=== PATIENT | female | born 1950 | race Caucasian/White ===

== ENCOUNTER → 2017-01-24 | Outpatient (REF) | payer MEDICARE, OTHER ==
[~2017-01-24] MED LIST: ACET65TA OR; AMLO5TAB OR; ASPI325T OR; ATEN50TA2 OR; AVAP300T OR; HYDR25TA6 OR; INTERFERON SQ; OMEP20TA7 OR; RIBAPOW11 PO
[2017-01-27 13:43] LABS: ALBUMIN 4.23 GM/DL (3.29-5.55); ALBUMIN % 52.9 % (55.8-66.1); GAMMA GLOBULIN % 20.3 % (11.1-18.8)
[2017-01-27 13:53] LABS: PHOSPHORUS LEVEL 3.7 MG/DL (2.5-4.9)
== END ==
LOC: M LAB REF 16:17
PROVIDERS: ATTEND Nurse Practitioner Adult Health
DX: R77.9 Abnormality of plasma protein, unspecified (principal); Z79.899 Other long term (current) drug therapy

== ENCOUNTER → 2017-02-07 | Outpatient (CLI) | payer MEDICARE, BC, OTHER | LOC: M LAB 12:52 | PROVIDERS: ATTEND Nurse Practitioner Adult Health | DX: E83.52 Hypercalcemia (principal) ==

== ENCOUNTER → 2017-02-12 | Outpatient (REF) | payer MEDICARE, BC, OTHER | LOC: M LAB REF 13:21 | PROVIDERS: ATTEND Nurse Practitioner Adult Health | DX: E83.52 Hypercalcemia (principal) ==

== ENCOUNTER → 2017-02-14 | Outpatient (REF) | payer MEDICARE, BC, OTHER ==
[2017-02-14 14:12] LABS: CALCIUM, URINE 13.5 MG/DL
== END ==
LOC: M LAB REF 12:38
PROVIDERS: ATTEND Nurse Practitioner Adult Health
DX: E83.52 Hypercalcemia (principal)

== ENCOUNTER → 2017-02-21 | Outpatient (CLI) | payer MEDICARE, BC, OTHER ==
--- NOTE | 2017-02-21 12:49 | REP ---
Whole body radionuclide bone scan: History: Hypercalcemia. Technique: 22.0 mCi technetium 99m MDP is injected and standard whole body bone scan imaging was acquired. 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 Mild degenerative disc and facet uptake is seen in the lumbar spine and the mid thoracic spine. There is some slightly increased arthritic uptake in the manubrial clavicular joint on the right compared to the left. There is no evidence to suggest skeletal metastatic disease. Bilateral renal and bladder uptake are observed. Impression: Arthritic pattern of increased uptake. No evidence to suggest skeletal metastatic disease. Signed by Damien Baltazar MD 02/21/2017 01:22 P
== END ==
LOC: M RAD 08:57
PROVIDERS: ATTEND Nurse Practitioner Adult Health
DX: E83.52 Hypercalcemia (principal)
CPT/HCPCS: 78306; A9503

== ENCOUNTER → 2018-01-30 | Outpatient (REF) | payer MEDICARE, BC, OTHER ==
[2018-01-30 17:27] LABS: C REACTIVE PROTEIN QUANTITATIV < 0.30 MG/DL (0.00-0.30)
[2018-01-30 17:35] LABS: VITAMIN B12 LEVEL 409 PG/ML (247-911)
== END ==
LOC: M LAB REF 16:42
DX: G25.0 Essential tremor (principal); Z79.899 Other long term (current) drug therapy
CPT/HCPCS: 82607

== ENCOUNTER 2018-06-09 09:50 | Day surgery (SDC) | payer MEDICARE, BC, OTHER ==
[2018-06-09] MEDS: NS 1,000 ML IV (10:00)
[2018-06-09] MEDS ORDERED: PROPOFOL 200 MG/20 ML VIAL As Ordered (11:43)
== END 2018-06-09 12:18 | disposition home or self-care (01) ==
LOC: M OPP 09:50
DX: Z12.11 Encounter for screening for malignant neoplasm of colon (principal); Z86.010 Personal history of colon polyps; I10 Essential (primary) hypertension; Z86.19 Personal history of other infectious and parasitic diseases; F41.9 Anxiety disorder, unspecified; M35.00 Sjogren syndrome, unspecified; M81.0 Age-related osteoporosis without current pathological fracture; Z79.899 Other long term (current) drug therapy
CPT/HCPCS: G0105

== ENCOUNTER → 2019-08-16 | Outpatient (REF) | payer MEDICARE, BC, OTHER ==
[~2019-08-16] MED LIST changes: +AMLO5TAB6 PO; +ATEN50TA2 PO; +FISH7.5C PO; +HYDR200T3 PO; +IRBE300T10 PO; +KLOR20TA42 PO; +OMEP20CA4 PO; +PROL60SO SC; +REST0.05 OU
== END ==
LOC: M LAB REF 15:45
PROVIDERS: ATTEND Physician Assistant
DX: N39.0 Urinary tract infection, site not specified (principal)

== ENCOUNTER → 2019-08-24 | Outpatient (REF) | payer MEDICARE, OTHER ==
[~2019-08-24] MED LIST changes: +OMEP-172 PO; -OMEP20CA4 PO
== END ==
LOC: M LAB REF 16:56
PROVIDERS: ATTEND Physician Assistant
DX: R30.0 Dysuria (principal)

== ENCOUNTER → 2020-01-26 | Outpatient (REF) | payer MEDICARE, OTHER ==
[~2020-01-26] MED LIST changes: -IRBE300T10 PO; +IRBE300T7 PO; -OMEP-172 PO; +OMEP1CAP73 PO
[2020-01-26 17:08] LABS: C REACTIVE PROTEIN QUANTITATIV < 0.30 MG/DL (0.00-0.30)
[2020-01-26 17:10] LABS: INR 1.04; PROTHROMBIN TIME 13.3 SECONDS (11.8-14.0)
== END ==
LOC: M LAB REF 16:08
PROVIDERS: ATTEND Nurse Practitioner Adult Health
DX: K74.60 Unspecified cirrhosis of liver (principal)

== ENCOUNTER → 2020-03-06 | Outpatient (REF) | payer MEDICARE, OTHER ==
[~2020-03-06] MED LIST changes: +GNP250TA9 PO; +SPIR-10 PO
[2020-03-06 19:29] LABS: RHEUMATOID FACTOR QUANT 22.7 IU/ML (<15.0)
[2020-03-10 23:07] LABS: ASPERGILLUS FLAVUS ABY Negative (Neg:<1:1); ASPERGILLUS FUMIGATUS ABY Negative (Neg:<1:1); ASPERGILLUS NIGER ABY Negative (Neg:<1:1)
[2020-03-13 12:07] LABS: ASPERGILLUS FUMIGATUS AB Negative (Negative); AUREOBASIDIUM PULLULANS Negative (Negative); BLASTOMYCES ANTIBODY LEVEL Negative (Neg:<1:1); CRYPTOCOCCUS ANTIGEN SER Negative (Negative); CYCLIC CITRULLINATED PEPTIDE 6 units (0-19); HISTOPLASMOSIS ANTIBODY Negative (Neg:<1:1); MICROPOLYSPORA FAENI AB Negative (Negative); PIGEON SERUM AB Negative (Negative); SSA SJOGRENS A >8.0 AI (0.0-0.9); SSB SJOGRENS B >8.0 AI (0.0-0.9); THERMOACTINOMYCES SACCHARI Negative (Negative); THERMOACTINOMYCES VULGARIS Negative (Negative)
== END ==
LOC: M LAB REF 16:33
PROVIDERS: ATTEND Internal Medicine Pulmonary Disease
DX: R91.8 Other nonspecific abnormal finding of lung field (principal)

== ENCOUNTER → 2020-03-06 | Outpatient (CLI) | payer MEDICARE, OTHER | LOC: M LABSMTC 09:57 | PROVIDERS: ATTEND Anesthesiology | DX: Z03.818 Encounter for observation for suspected exposure to other biological agents ruled out (principal); Z11.59 Encounter for screening for other viral diseases | CPT/HCPCS: C9803; U0003 ==

== ENCOUNTER → 2020-03-08 | Outpatient (REF) | payer MEDICARE, OTHER ==
[~2020-03-08] MED LIST changes: +AMLO1TAB24 PO; -AMLO5TAB6 PO
== END ==
LOC: M LAB REF 10:10
PROVIDERS: ATTEND Internal Medicine Pulmonary Disease
DX: R91.8 Other nonspecific abnormal finding of lung field (principal)

== ENCOUNTER 2020-03-09 07:03 | Day surgery (SDC) | payer MEDICARE, BC, OTHER ==
[~2020-03-09] VITALS: Ht 165.1 cm; Wt 77.1 kg
[~2020-03-09 07:03] MED LIST changes: -AMLO1TAB24 PO; +AMLO5TAB6 PO; +LIDOCAINE 1% MDV 20ML VIAL SQ PRN; +LIDOCAINE 2% W/EPIN INJ 20ML **PRES FREE As Ordered ONE; +OFLOXACIN 0.3 % (OCUFLOX) OPTH SOL 5ML OS ONE; +PHENYLEPHRINE 2.5% OPHTH SOL 2ML OS ONE; +POVIDONE-IODINE 5% OPHTH PREP SOL 30ML As Ordered ONE; +PROPARACAINE 0.5% OPHTH SOL 15ML OS ONE; +TROPICAMIDE 1% OPHTH SOLN 2ML OS ONE; +mitoMYcin 0.2 MG/VIAL KIT FOR OPHTHALMIC USE (J7315 PER 0.2MG) As Ordered ONE
[2020-03-09] MEDS ORDERED: MIDAZOLAM INJ 2MG/2ML VIAL (J2250 PER 1MG) As Ordered ONE (07:54)
[2020-03-09] MEDS ORDERED: fentaNYL 100 MCG/2 ML INJECTION (J3010) As Ordered ONE (07:54)
[2020-03-09] MEDS ORDERED: BSS IRR 500ML/OMIDRIA 4ML IRR BAG (OR ONLY) (J1097 PER ML) As Ordered ONE (08:06)
[2020-03-09] MEDS ORDERED: ACETAMINOPHEN TAB 650MG DOSE (2X325MG) PO PRN (09:00)
[2020-03-09] MEDS ORDERED: ONDANSETRON 4MG/2ML VIAL IV PRN (09:00)
[2020-03-09 09:05] VITALS: BP 113/74
--- NOTE | 2020-03-15 08:38 | RO ---
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 PROCEDURE: Excisional biopsy of a benign temporal conjunctival neoplasm of the left eye with a no-touch technique using amniotic membrane and Tisseel glue. SURGEON: Dr. Tao De Santiago. RATE SETTER: None. ANESTHESIA: Local with monitored anesthesia care (MAC). 1% lidocaine with epinephrine. DESCRIPTION OF PROCEDURE: The patient was seen and identified in the preoperative area. The consents were reviewed and the surgical eye was marked. The patient was transferred to the operating room. The patient was prepped and draped in a sterile fashion. Tegaderm was used to isolate the upper and lower eyelids and a wire lid speculum was placed. 1% lidocaine with epinephrine was injected into the subconjunctival space approximately 3 mL and this was with a cotton tip applicator. Using sharp tip Goldie scissors, and 0.12 forceps, the neoplasm was removed from the temporal corneal limbus with 4 mm margins and sent to pathology. Careful inspection was used to insure that all of the neoplasm was removed. The lesion was measured to be approximately 3.5 x 3 mm. There were subtle corneal leukoplakia findings. The conjunctival defect was then measured and was found to be approximately 4 x 4 mm. A cryopreserved amniotic membrane tissue was fashioned to the size and brought near the corneal limbus and placed stromal side down. The area was meticulously dried with wax spheres and extremely Wet-Field cautery was applied to the distal conjunctival bed. The area was then further dried with wax spheres. At that time, one drop of Tisseel glue was placed on the scleral bed near the conjunctival defect and the amniotic membrane was placed over the conjunctival defect. This was gently smoothed so all glue was removed toward the corneal limbus. This was all using a separate set of instruments. The defect was nicely covered. A contact lens was placed and the patient was discharged to the postanesthesia care unit (PACU) instable condition.
== END 2020-03-09 09:49 | disposition home or self-care (01) ==
LOC: M SDC 07:03
PROVIDERS: ATTEND Ophthalmology
DX: D31.02 Benign neoplasm of left conjunctiva (principal); B18.2 Chronic viral hepatitis C; I10 Essential (primary) hypertension; F41.9 Anxiety disorder, unspecified; Z79.899 Other long term (current) drug therapy
CPT/HCPCS: 68100; 88304; A6024; C1762; J1097; J2250; J3010; J7315

== ENCOUNTER → 2020-05-18 | Outpatient (CLI) | payer MEDICARE, BC, OTHER ==
[~2020-05-18] MED LIST changes: +AMLO1TAB24 PO; -AMLO5TAB6 PO; -LIDOCAINE 1% MDV 20ML VIAL SQ PRN; -LIDOCAINE 2% W/EPIN INJ 20ML **PRES FREE As Ordered ONE; -OFLOXACIN 0.3 % (OCUFLOX) OPTH SOL 5ML OS ONE; -PHENYLEPHRINE 2.5% OPHTH SOL 2ML OS ONE; -POVIDONE-IODINE 5% OPHTH PREP SOL 30ML As Ordered ONE; -PROPARACAINE 0.5% OPHTH SOL 15ML OS ONE; -TROPICAMIDE 1% OPHTH SOLN 2ML OS ONE; -mitoMYcin 0.2 MG/VIAL KIT FOR OPHTHALMIC USE (J7315 PER 0.2MG) As Ordered ONE
--- NOTE | 2020-05-21 10:28 | ECHO ---
DATE OF PROCEDURE: 05/18/2020 Age: Gender: Male Height: 165 cm Weight: 75 kg REFERRING PHYSICIAN: Dr. Carmen INDICATION: Dyspnea. MEASUREMENTS: IVS 1.0 LV 4.8 LVPW 1.0 LA 3.6 Aorta 3.1 IVC 1.3 Left atrial volume index 27 Mitral E wave velocity 72, A wave 121 E prime septal 5.2 E prime lateral 6.7 FINDINGS: The study is of good technical quality. The patient is in sinus rhythm. Left ventricle is normal size and has normal contractility, estimated left ventricular ejection fraction (LVEF) approximately 60 to 65%. No segmental wall motion abnormalities appreciated, even though apical segments have somewhat limited visualization. Right ventricle also appears normal size and systolic function. Both atria appear normal. Aortic valve is mildly sclerotic, but has preserved mobility. Mitral, tricuspid and pulmonic valves appear normal. No pericardial effusion is present. Inferior vena cava is normal size. Aortic root is normal. Aortic arch and abdominal aorta also appears normal. Doppler interrogation of aortic valve reveals no significant stenosis and mild insufficiency. There is trace mitral and trace tricuspid insufficiency. Calculated pulmonary artery pressure is around 30 mmHg, which corresponds to upper limits of normal values. Pulmonic valve is functionally competent. Mitral inflow pattern and tissue Doppler imaging of mitral annulus reveals grade 1 diastolic dysfunction. CONCLUSIONS: 1. Study is of good technical quality. The patient is in sinus rhythm 2. Normal LV size with preserved LV systolic function and grade 1 diastolic dysfunction. 3. Aortic sclerosis with no stenosis and mild insufficiency. 4. Trace mitral and tricuspid insufficiency. 5. Likely normal central venous pressure and normal or possibly mildly elevated pulmonary artery pressure. 6. No obvious findings to explain dyspnea. [facility]
== END ==
LOC: M CARPUL 10:19
PROVIDERS: ATTEND Internal Medicine Pulmonary Disease
DX: R06.00 Dyspnea, unspecified (principal)

== ENCOUNTER → 2020-08-01 | Outpatient (REF) | payer MEDICARE, BC, OTHER ==
[2020-08-01 13:08] LABS: INR 0.95; PROTHROMBIN TIME 12.9 SECONDS (12.5-14.3)
[2020-08-01 13:54] LABS: PHOSPHORUS LEVEL 3.4 MG/DL (2.5-4.9)
== END ==
LOC: M LAB REF 12:09
PROVIDERS: ATTEND Nurse Practitioner Adult Health
DX: K74.60 Unspecified cirrhosis of liver (principal); Z51.81 Encounter for therapeutic drug level monitoring

== ENCOUNTER → 2020-08-29 | Outpatient (CLI) | payer MEDICARE, BC, OTHER ==
--- NOTE | 2020-08-29 14:54 | REP ---
INDICATION: DYSPHAGIA. COMPARISON: None. TECHNIQUE: The procedure was performed by Mame Gaviria [facility], under the direct supervision of Dr. Baltazar. The procedure was performed with Gabby Perrin from speech pathology present. 5 ml aliquots of thin, and pudding consistency barium was administered. FINDINGS: No aspiration or penetration was visualized. The detailed report of this examination will be provided by speech pathology. IMPRESSION: No aspiration or penetration was visualized, a detailed report will be provided by speech pathology. 0.7 minutes of fluoroscopy time was utilized for this procedure. Some fluoroscopic images are performed with last image hold technology. These images require no additional radiation <Electronically signed by Mame Gaviria > 08/29/20 [id number] <Electronically signed by Conrado Baltazar > 08/29/20 [id number]
== END ==
LOC: M ST 12:51
PROVIDERS: ATTEND Nurse Practitioner Adult Health
DX: R13.10 Dysphagia, unspecified (principal)

== ENCOUNTER → 2020-09-11 | Outpatient (CLI) | payer MEDICARE, BC, OTHER ==
--- NOTE | 2020-09-11 14:03 | REP ---
INDICATION: CONTUSION COMPARISON: None. TECHNIQUE: AP, lateral, bilateral oblique views left foot. FINDINGS: Oblique fracture of the 5th metatarsal with overlying soft tissue swelling noted.. IMPRESSION: Oblique fracture involving the distal aspect of the 5th metatarsal bone with overlying soft tissue swelling. <Electronically signed by Berny Jha > 09/11/20 1400
== END ==
LOC: M WUC 13:45
PROVIDERS: ATTEND Physician Assistant
DX: S92.352A Displaced fracture of fifth metatarsal bone, left foot, initial encounter for closed fracture (principal); X58.XXXA Exposure to other specified factors, initial encounter; Y92.9 Unspecified place or not applicable; Y99.9 Unspecified external cause status

== ENCOUNTER → 2021-02-22 | Outpatient (REF) | payer MEDICARE, BC, OTHER | LOC: M LAB REF 11:16 | PROVIDERS: ATTEND Nurse Practitioner Adult Health | DX: M81.0 Age-related osteoporosis without current pathological fracture (principal) ==

== ENCOUNTER → 2021-03-07 | Outpatient (REF) | payer MEDICARE, BC, OTHER | LOC: M LAB REF 13:09 | PROVIDERS: ATTEND Nurse Practitioner Adult Health | DX: N39.0 Urinary tract infection, site not specified (principal) ==

== ENCOUNTER → 2021-03-21 | Outpatient (CLI) | payer MEDICARE, BC, OTHER ==
--- NOTE | 2021-03-21 09:51 | REP ---
INDICATION: CIRRHOSIS. COMPARISON: 02/15/2020. TECHNIQUE: Real-time sonographic evaluation of right upper quadrant performed. FINDINGS: The gallbladder demonstrates no evidence of intraluminal sludge or calculi, wall thickening or pericholecystic fluid. There is no intrahepatic or extrahepatic biliary dilatation, common bile duct measures 3 mm in maximum diameter. The liver demonstrates coarsened, heterogeneous echotexture with no focal mass. Pancreas demonstrates homogeneous echotexture with no gross mass, the pancreatic tail is not optimally seen due to overlying bowel gas. The right kidney demonstrates no hydronephrosis, with a normal size of 11.5 cm in length. No free fluid is seen. IMPRESSION: Heterogeneous echotexture of the liver with no focal mass. <Electronically signed by Kamran Aguilar > 03/21/21 [id number]
== END ==
LOC: M WHC 08:47
PROVIDERS: ATTEND Internal Medicine
DX: K74.60 Unspecified cirrhosis of liver (principal)

== ENCOUNTER → 2021-06-14 | Outpatient (CLI) | payer MEDICARE, BC, OTHER ==
[~2021-06-14] MED LIST changes: -KLOR20TA42 PO; +POTA-141 PO
--- NOTE | 2021-06-16 20:33 | ECHO ---
ECHOCARDIOGRAM DATE OF PROCEDURE: 06/14/2021 Age: 70 Gender: Female Height: Weight: REFERRING PHYSICIAN: Dr. Bina Carmen PATIENT LOCATION: Outpatient REASON FOR ECHOCARDIOGRAM: Shortness of breath, bone thicknesses 2D MEASUREMENTS: IVS 0.8 cm LV 5.0 cm LVPW 0.8 cm LA 3.5 cm Aorta 3.6 cm DOPPLER MEASUREMENTS: Peak velocity across the aortic valve 1.5 m/s Peak velocity across the LVOT 0.9 m/s Mitral E 0.7 Mitral A 0.9 with a ratio of 0.8 Maximum tricuspid valve velocity 2.1 m/s 2D COMMENTS: 1. Normal left ventricular size, wall thickness, and normal global left ventricular systolic function. The estimated left ventricular systolic ejection fraction is 60% to 65%. 2. Normal left atrium. 3. Normal right atrium and right ventricle. 4. The atrial septum appeared to be normal without evidence of defect or shunt. 5. Normal aortic root. 6. Echo free space noted inferiorly that may represent a fat pad versus some trace pericardial effusion. 7. Mildly calcified aortic valve with normal leaflet excursion. Mildly calcified mitral annulus with normal anterior mitral valve leaflet motion. Normal tricuspid valve. The pulmonic valve was not well visualized. 8. The inferior vena cava was not well visualized. DOPPLER: It detects mild aortic regurgitation, trace to mild mitral regurgitation, trace to mild tricuspid regurgitation, and trace pulmonic regurgitation. The calculated pulmonary artery systolic pressure was less than 13 mmHg. Abnormal relaxation pattern was noted across the mitral valve leaflets as well as the mitral valve annulus, consistent with features of grade 1 left ventricular diastolic dysfunction. IMPRESSION: 1. Normal global left ventricular systolic function. There were some features of left ventricular diastolic dysfunction manifested by abnormal relaxation, grade 1. 2. Aortic valve sclerosis with mild aortic regurgitation but no aortic stenosis. 3. Mitral annulus calcification with trace to mild mitral regurgitation. 3. Trace to mild tricuspid regurgitation with a normal calculated pulmonary artery systolic pressure. 4. Trace pulmonic regurgitation. 5. Trace pericardial effusion noted inferiorly versus a fat pad.
== END ==
LOC: M CARPUL 14:16
PROVIDERS: ATTEND Internal Medicine Pulmonary Disease
DX: I70.0 Atherosclerosis of aorta (principal); J47.9 Bronchiectasis, uncomplicated

== ENCOUNTER → 2022-02-18 | Outpatient (CLI) | payer MEDICARE, BC, OTHER | LOC: M PLAIMG 09:30 | PROVIDERS: ATTEND Internal Medicine Pulmonary Disease | DX: R91.8 Other nonspecific abnormal finding of lung field (principal) ==

== ENCOUNTER → 2022-02-22 | Outpatient (REF) | payer MEDICARE, OTHER, BC ==
[2022-02-22 13:30] LABS: PHOSPHORUS LEVEL 3.7 MG/DL (2.5-4.9)
[2022-02-26 17:23] LABS: PTH INTACT 44.9 PG/ML (18.5-88.0)
== END ==
LOC: M LAB REF 12:15
PROVIDERS: ATTEND Nurse Practitioner Adult Health
DX: Z79.899 Other long term (current) drug therapy (principal)

== ENCOUNTER → 2022-05-03 | Outpatient (CLI) | payer MEDICARE, BC, OTHER ==
[~2022-05-03] MED LIST changes: +FISH10005 PO; -FISH7.5C PO
== END ==
LOC: M RAD 14:26
PROVIDERS: ATTEND Nurse Practitioner Adult Health
DX: I65.23 Occlusion and stenosis of bilateral carotid arteries (principal)

== ENCOUNTER → 2022-05-21 | Outpatient (CLI) | payer MEDICARE, BC, OTHER | LOC: M WUC 14:06 | PROVIDERS: ATTEND Student in an Organized Health Care Education/Training Program | DX: S20.212A Contusion of left front wall of thorax, initial encounter (principal) ==

== ENCOUNTER → 2023-02-12 | Outpatient (REF) | payer MEDICARE, BC, OTHER | LOC: M LAB REF 16:17 | PROVIDERS: ATTEND Nurse Practitioner Adult Health | DX: M81.0 Age-related osteoporosis without current pathological fracture (principal); Z79.899 Other long term (current) drug therapy ==

== ENCOUNTER → 2023-02-20 | Outpatient (CLI) | payer MEDICARE, BC, OTHER ==
[~2023-02-20] MED LIST changes: -HYDR200T3 PO; +HYDR200T46 PO; +ISOVUE-370 76% 100ML VIAL As Ordered ONE
== END ==
LOC: M RAD 14:13
PROVIDERS: ATTEND Internal Medicine
DX: K74.60 Unspecified cirrhosis of liver (principal)

== ENCOUNTER → 2023-03-19 | Outpatient (CLI) | payer MEDICARE, BC, OTHER ==
[~2023-03-19] MED LIST changes: -ISOVUE-370 76% 100ML VIAL As Ordered ONE
== END ==
LOC: M PLAIMG 12:34
PROVIDERS: ATTEND Internal Medicine Pulmonary Disease
DX: R91.8 Other nonspecific abnormal finding of lung field (principal)

== ENCOUNTER → 2023-04-07 | Outpatient (REF) | payer MEDICARE, BC, OTHER ==
[2023-04-07 17:50] LABS: APPEARANCE, URINE CLOUDY (CLEAR); BACTERIA, URINE AUTO 2+ (NEGATIVE); BILIRUBIN, URINE AUTO NEGATIVE (NEGATIVE); BLOOD, URINE BLOOD NEGATIVE (NEGATIVE); COLOR, URINE AMBER (YELLOW); GLUCOSE, URINE (UA) AUTO NEGATIVE (NEGATIVE); KETONE, URINE AUTO TRACE mg/dL (NEGATIVE); LEUKOCYTE ESTERASE, URINE AUTO 3+ (NEGATIVE); MUCUS, URINE SMALL (NEGATIVE); NITRITE, URINE AUTO POSITIVE (NEGATIVE); PROTEIN, URINE AUTO 1+ mg/dL (NEGATIVE); RBC, URINE AUTO 7 /HPF (0-3); SPECIFIC GRAVITY URINE AUTO 1.018 (1.002-1.035); SQUAMOUS EPITHELIAL CELL UR AU 1 /HPF (0-6); WBC, URINE AUTO TNTC /HPF (0-3)
== END ==
LOC: M LAB REF 16:12
PROVIDERS: ATTEND Physician Assistant Medical
DX: N39.0 Urinary tract infection, site not specified (principal)

== ENCOUNTER → 2023-05-08 | Outpatient (REF) | payer MEDICARE, BC, OTHER | LOC: M LAB REF 16:02 | PROVIDERS: ATTEND Nurse Practitioner Adult Health | DX: R31.9 Hematuria, unspecified (principal); N18.31 Chronic kidney disease, stage 3a; R77.9 Abnormality of plasma protein, unspecified ==

== ENCOUNTER → 2023-05-30 | Outpatient (CLI) | payer MEDICARE, BC, OTHER | LOC: M CARPUL 11:17 | PROVIDERS: ATTEND Physician Assistant Medical | DX: I35.1 Nonrheumatic aortic (valve) insufficiency (principal) ==

== ENCOUNTER → 2024-03-01 | Outpatient (REF) | payer MEDICARE, BC, OTHER ==
[~2024-03-01] MED LIST changes: +IRBE300T25 PO; -IRBE300T7 PO
== END ==
LOC: M LAB REF 16:17
PROVIDERS: ATTEND Physician Assistant Medical
DX: Z79.899 Other long term (current) drug therapy (principal)